=== PATIENT | male | born 1975 | race Caucasian/White ===

== ENCOUNTER → 2016-07-08 | Outpatient (CLI) | payer OTHER ==
--- NOTE | 2016-07-08 13:51 | MR ---
EXAMINATION TYPE: MR shoulder RT wo con DATE OF EXAM: 07/08/2016 1:21 PM COMPARISON: NONE HISTORY: right shoulder pain TECHNIQUE: Multiplanar, multisequence imaging of the right shoulder is performed without contrast. FINDINGS: There is no evidence of an os acromiale. There is minimal hypertrophic inflammatory change within the right AC joint. There is a downward slop ing acromion. There is minimal pseudocystic change in the humeral head, an indirect sign of impingement. There is a 7.6 mm rim rent tear involving the posterior fibers of the supraspinatus tendon with some associated tendinosis in the posterior fibers. No full-thickness tear is seen. The cartilaginous glenoid labrum is intact. The biceps tendon is normally situated within the biceps tendon groove and inserts normally upon the biceps anchor. IMPRESSION: 1. SMALL REMNANT TEAR AND MILD TENDINOSIS OF THE POSTERIOR FIBERS OF SUPRASPINATUS TENDON. 2. MILD HYPERTROPHIC INFLAMMATORY CHANGE INVOLVING THE RIGHT AC JOINT. 3. INDIRECT EVIDENCE OF IMPINGEMENT.
== END | disposition home or self-care (01) ==
LOC: RADMRIMAIN 12:47
PROVIDERS: ATTEND Nurse Practitioner Women's Health
DX: M75.81 Other shoulder lesions, right shoulder (principal)

== ENCOUNTER 2017-12-11 19:07 | Emergency (ER) | payer BC, OTHER ==
[2017-12-11] MEDS ORDERED: SODIUM CHLORIDE 0.9% 1,000 ML IV ONE (20:53)
[2017-12-11] MEDS ORDERED: methylPREDNISolone SOD SUCCI 125 MG/2 ML VIAL IV STA (20:53)
[2017-12-11] MEDS ORDERED: IPRATROPIUM-ALBUTEROL 3 ML NEB INHALATION STA (21:28)
[2017-12-11 21:35] LABS: Basophils # (A) 0.1 k/uL (0-0.2); Basophils % (A) 1 %; Eosinophils # (A) 0.3 k/uL (0-0.7); Eosinophils % (A) 4 %; HCT 43.7 % (39.0-53.0); HGB 14.8 gm/dL (13.0-17.5); Lymphocytes # (A) 1.9 k/uL (1.0-4.8); Lymphocytes % (A) 22 %; MCH 30.5 pg (25.0-35.0); MCV 89.8 fL (80.0-100.0); Mean Platelet Volume 6.5; Monocytes # (A) 0.8 k/uL (0-1.0); Monocytes % (A) 9 %; Neutrophils # (A) 5.7 k/uL (1.3-7.7); Neutrophils % (A) 64 %; Platelet Count 217 k/uL (150-450); RBC 4.86 m/uL (4.30-5.90); RDW 12.7 % (11.5-15.5); WBC 8.9 k/uL (3.8-10.6)
--- NOTE | 2017-12-11 21:35 | XR ---
EXAMINATION TYPE: XR chest 2V DATE OF EXAM: 12/11/2017 COMPARISON: NONE HISTORY: Asthma. Short of breath TECHNIQUE: Frontal and lateral views of the chest are obtained. FINDINGS: Heart and mediastinum are normal. There is probably some infiltrate in the lingula left up per lobe. The other lung parra are clear. Diaphragm is normal. Bony thorax appears normal. IMPRESSION: Lingula pneumonia. Normal heart.
[2017-12-11 21:47] LABS: ALT 48 U/L (21-72); AST 24 U/L (17-59); Albumin 3.9 g/dL (3.5-5.0); Alkaline Phosphatase 54 U/L (38-126); Anion Gap 9 mmol/L; Blood Urea Nitrogen 18 mg/dL (9-20); Calcium 9.2 mg/dL (8.4-10.2); Carbon Dioxide 24 mmol/L (22-30); Chloride 104 mmol/L (98-107); Glucose 107 mg/dL (74-99); Potassium 3.9 mmol/L (3.5-5.1); Sodium 137 mmol/L (137-145); Total Bilirubin 0.6 mg/dL (0.2-1.3); Total Protein 6.6 g/dL (6.3-8.2)
[2017-12-11 22:04] VITALS: BP 97/56; PULSE 71; RESP 18
[2017-12-11 22:05] VITALS: TEMP 98.5
[2017-12-11] MEDS ORDERED: AZITHROMYCIN 500 MG TAB PO STA (22:29)
--- NOTE | 2017-12-11 22:29 | ED ---
SOB HPI - General Chief Complaint: Shortness of Breath Stated Complaint: Dx Bronchitis Time Seen by Provider: 12/11/17 20:28 Source: patient Mode of arrival: ambulatory Limitations: no limitations - History of Present Illness Initial Comments: 42-year-old male patient presents the emergency department today for complaints of shortness of breath and cough. Patient states he has been sick for the last week after coming home from a trip to [place]. Patient states that he did fly to [place]. Patient states he was seen and evaluated at the walk-in clinic on Monday and was diagnosed with bronchitis given an inhaler and steroids. Patient states that he has completed the steroids and has been using the inhaler but his symptoms seem to be worsening rather than improving. He does report coughing up green to yellow sputum, does report having had streaks of blood and at times. Today he did develop a fever as high as 101.1F. Patient denies any chest pain but states it feels tight. Denies any leg or calf pain. Does admit to smoking half pack of cigarettes per day. Patient denies any recent rash, abdominal pain, nausea, vomiting, diarrhea, constipation , back pain, numbness, tingling, dizziness, weakness, hematuria, dysuria, urinary urgency, urinary frequency, headache, visual changes, or any other complaints. - Related Data Home Medications Medication Instructions Recorded Confirmed Albuterol Sulfate [Proair Hfa] 2 puff INHALATION RT-Q6H PRN 12/11/17 12/11/17 Ibuprofen [Motrin] 800 mg PO TID PRN 12/11/17 12/11/17 Levocetirizine Dihydrochloride 5 mg PO DAILY PRN 12/11/17 12/11/17 [Xyzal] diphenhydrAMINE HCL [Benadryl] 25 mg PO Q6H PRN 12/11/17 12/11/17 Previous Rx's Medication Instructions Recorded Azithromycin [Zithromax] 500 mg PO DAILY #5 tab 12/11/17 Promethazine 6.25MG/5Ml [Phenergan 6.25 mg PO Q6H #100 ml 12/11/17 Syrup] Allergies Allergy/AdvReac Type Severity Reaction Status Date / Time No Known Allergies Allergy Verified 12/11/17 20:01 Review of Systems ROS Statement: Those systems with pertinent positive or pertinent negative responses have been documented in the HPI. ROS Other: All systems not noted in ROS Statement are negative. Past Medical History Past Medical History: No Reported History Additional Past Medical History / Comment(s): ABDOMINAL PAIN History of Any Multi-Drug Resistant Organisms: None Reported Past Surgical History: Tonsillectomy Past Anesthesia/Blood Transfusion Reactions: No Reported Reaction Past Psychological History: No Psychological Hx Reported Smoking Status: Current every day smoker Past Alcohol Use History: Rare Past Drug Use History: None Reported General Exam Limitations: no limitations General appearance: alert, in no apparent distress, other (This is a well- developed, well-nourished adult male patient in no acute distress. Vital signs upon presentation are temperature 101.1F, pulse 89, respirations 22, blood pressure 110/70, pulse ox 97% on room air.) Eye exam: Present: normal appearance, PERRL, EOMI. Absent: scleral icterus, conjunctival injection, periorbital swelling ENT exam: Present: normal exam, normal oropharynx, mucous membranes moist, TM's normal bilaterally Neck exam: Present: normal inspection. Absent: tenderness, meningismus, lymphadenopathy Respiratory exam: Present: normal lung sounds bilaterally. Absent: respiratory distress, wheezes, rales, rhonchi, stridor Cardiovascular Exam: Present: regular rate, normal rhythm, normal heart sounds. Absent: systolic murmur, diastolic murmur, rubs, gallop, clicks GI/Abdominal exam: Present: soft, normal bowel sounds. Absent: distended, tenderness, guarding, rebound, rigid Neurological exam: Present: alert, oriented X3, CN II-XII intact Psychiatric exam: Present: normal affect, normal mood Skin exam: Present: warm, dry, intact, normal color. Absent: rash Course Vital Signs 12/11/17 12/11/17 12/11/17 19:13 20:43 21:34 Temperature 101.1 F H Pulse Rate 89 60 Respiratory 22 16 Rate Blood Pressure 110/70 O2 Sat by Pulse 97 Oximetry 12/11/17 12/11/17 12/11/17 21:42 22:03 22:05 Temperature 98.5 F Pulse Rate 63 71 Respiratory 18 Rate Blood Pressure 97/56 O2 Sat by Pulse 97 Oximetry Medical Decision Making - Medical Decision Making 42-year-old male patient presents the emergency department today for evaluation of shortness of breath and cough with sputum production. Physical examination did reveal normal lung sounds. Vital signs did reveal elevated temperature at 101.1F. Has patient did recently travel did perform labs including d-dimer which was negative. White blood cell count was normal. Lactic acid was negative. Chest x-ray did show a left lingular pneumonia. Patient will be treated with azithromycin outpatient as he is maintaining oxygen saturation at 98% and does not seem to be in any acute distress at this time. He does have Pro Air as well as albuterol breathing treatments at home, he is urged to continue this. He'll be instructed to follow-up with his primary care physician for recheck in 1-2 days. Return parameters were discussed in detail. Patient is being discharged in stable condition. He verbalizes understanding and agrees with this plan. - Lab Data Result diagrams: 12/11/17 21:22 12/11/17 21:22 Lab Results 12/11/17 12/11/17 12/11/17 Range/Units 21:22 21:22 21:22 WBC 8.9 (3.8-10.6) k/uL RBC 4.86 (4.30-5.90) m/uL Hgb 14.8 (13.0-17.5) gm/dL Hct 43.7 (39.0-53.0) % MCV 89.8 (80.0-100.0) fL MCH 30.5 (25.0-35.0) pg MCHC 34.0 (31.0-37.0) g/dL RDW 12.7 (11.5-15.5) % Plt Count 217 (150-450) k/uL Neutrophils % 64 % Lymphocytes % 22 % Monocytes % 9 % Eosinophils % 4 % Basophils % 1 % Neutrophils # 5.7 (1.3-7.7) k/uL Lymphocytes # 1.9 (1.0-4.8) k/uL Monocytes # 0.8 (0-1.0) k/uL Eosinophils # 0.3 (0-0.7) k/uL Basophils # 0.1 (0-0.2) k/uL D-Dimer 0.30 (<0.60) mg/L FEU Sodium 137 (137-145) mmol/L Potassium 3.9 (3.5-5.1) mmol/L Chloride 104 (98-107) mmol/L Carbon Dioxide 24 (22-30) mmol/L Anion Gap 9 mmol/L BUN 18 (9-20) mg/dL Creatinine 1.00 (0.66-1.25) mg/dL Est GFR (CKD-EPI)AfAm >90 (>60 ml/min/1.73 sqM) Est GFR (CKD-EPI)NonAf >90 (>60 ml/min/1.73 sqM) Glucose 107 H (74-99) mg/dL Plasma Lactic Acid Octavio (0.7-2.0) mmol/L Calcium 9.2 (8.4-10.2) mg/dL Total Bilirubin 0.6 (0.2-1.3) mg/dL AST 24 (17-59) U/L ALT 48 (21-72) U/L Alkaline Phosphatase 54 (38-126) U/L Total Protein 6.6 (6.3-8.2) g/dL Albumin 3.9 (3.5-5.0) g/dL 12/11/17 Range/Units 21:22 WBC (3.8-10.6) k/uL RBC (4.30-5.90) m/uL Hgb (13.0-17.5) gm/dL Hct (39.0-53.0) % MCV (80.0-100.0) fL MCH (25.0-35.0) pg MCHC (31.0-37.0) g/dL RDW (11.5-15.5) % Plt Count (150-450) k/uL Neutrophils % % Lymphocytes % % Monocytes % % Eosinophils % % Basophils % % Neutrophils # (1.3-7.7) k/uL Lymphocytes # (1.0-4.8) k/uL Monocytes # (0-1.0) k/uL Eosinophils # (0-0.7) k/uL Basophils # (0-0.2) k/uL D-Dimer (<0.60) mg/L FEU Sodium (137-145) mmol/L Potassium (3.5-5.1) mmol/L Chloride (98-107) mmol/L Carbon Dioxide (22-30) mmol/L Anion Gap mmol/L BUN (9-20) mg/dL Creatinine (0.66-1.25) mg/dL Est GFR (CKD-EPI)AfAm (>60 ml/min/1.73 sqM) Est GFR (CKD-EPI)NonAf (>60 ml/min/1.73 sqM) Glucose (74-99) mg/dL Plasma Lactic Acid Octavio 1.1 (0.7-2.0) mmol/L Calcium (8.4-10.2) mg/dL Total Bilirubin (0.2-1.3) mg/dL AST (17-59) U/L ALT (21-72) U/L Alkaline Phosphatase (38-126) U/L Total Protein (6.3-8.2) g/dL Albumin (3.5-5.0) g/dL - Radiology Data Radiology results: report reviewed, image reviewed Two-view x-ray of the chest is obtained. Heart media's enema normal. There is probably some infiltrate in the lingula left upper lobe. The other lung parra are clear. Diaphragm is normal. Bony thorax appears well. Impression by Dr. Houston shows lingular pneumonia. Normal heart. Disposition Clinical Impression: Left upper lobe pneumonia Disposition: HOME SELF-CARE Condition: Good Instructions: Community Acquired Pneumonia (ED) Additional Instructions: Take Tylenol and Motrin for fever control. Complete antibiotic prescription and full. Continue using your home nebulizer as directed. Follow-up with your primary care physician for recheck in 1-2 days. Return here immediately for any new, worsening, or concerning symptoms. Prescriptions: Azithromycin [Zithromax] 500 mg PO DAILY #5 tab Promethazine 6.25MG/5Ml [Phenergan Syrup] 6.25 mg PO Q6H #100 ml Is patient prescribed a controlled substance at d/c from ED?: No Referrals: Radu Espino MD [Primary Care Provider] - 1-2 days Time of Disposition: 22:28
== END 2017-12-11 22:45 | disposition home or self-care (01) ==
LOC: EC 19:07
DX: J18.9 Pneumonia, unspecified organism (principal); F17.200 Nicotine dependence, unspecified, uncomplicated
CPT/HCPCS: 36415; 94640; 85379; 80053; 83605; 85025; 87040; 71046; 99285; 96374; 96361; J2930